=== PATIENT | male | born 1950 | race Caucasian/White ===

== ENCOUNTER 2017-01-11 02:45 | Emergency (ER) | payer OTHER ==
[~2017-01-11] VITALS: Ht 170.2 cm; Wt 76.8 kg
[2017-01-11] MEDS ORDERED: methylPREDNISolone SOD SUCC 125 MG/2 ML ONE (03:12)
[2017-01-11] MEDS ORDERED: ALBUTEROL/IPRATROPIUM 2.5MG/0.5MG, 3 ML ONE (03:13)
[2017-01-11] MEDS ORDERED: SODIUM CHLORIDE 0.9% 1,000ML IVBOLUS ONE (03:30)
[2017-01-11] MEDS ORDERED: ALBUTEROL/IPRATROPIUM 2.5MG/0.5MG, 3 ML NPPB SCH (03:30)
[2017-01-11] MEDS ORDERED: methylPREDNISolone SOD SUCC 125 MG/2 ML IVP ONE (03:30)
[2017-01-11] MEDS ORDERED: SODIUM CHLORIDE FLUSH 10ML SYR IVF ONE (03:30)
[2017-01-11 03:39] LABS: HEMOGLOBIN 15.1 g/dL (13.7-18.0); WHITE BLOOD COUNT 6.2 x10^3/uL (3.4-10)
[2017-01-11 03:44] LABS: ASPARTATE AMINO TRANSFERASE 15 U/L (15-37); BLOOD UREA NITROGEN 19 mg/dL (7-18)
[2017-01-11 03:52] LABS: IS PT STATUS REG ER OR PRE ER? YES
[2017-01-11 04:18] LABS: RAPID INFLUENZA A Negative (Negative); RAPID INFLUENZA B Negative (Negative)
[2017-01-11 05:19] VITALS: BP 105/67
== END 2017-01-11 05:22 | disposition home or self-care (01) ==
LOC: ED 03:54
DX: J45.31 Mild persistent asthma with (acute) exacerbation (principal); J06.9 Acute upper respiratory infection, unspecified
CPT/HCPCS: 36415; 71020; 80053; 83880; 84484; 85025; 87400; 93005; 94640; 96361; 96374; 99285; J2930; J7030; J7620